=== PATIENT | male | born 1970 | race Caucasian/White ===

== ENCOUNTER 2021-09-13 10:37 | Emergency (ER) | payer OTHER ==
[~2021-09-13] VITALS: Ht 180.3 cm; Wt 108.1 kg
[2021-09-13 10:44] VITALS: BP 140/81
[2021-09-13] MEDS ORDERED: KETOROLAC 60 MG/2 ML VIAL IM ONE (12:00)
--- NOTE | 2021-09-13 12:00 | NUR ---
PT AMBULATED TO BED 04.
--- NOTE | 2021-09-13 12:10 | NUR ---
MICHELLE KEE AT PT BEDSIDE FOR FURTHER EVALUATION.
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
[2021-09-13] MEDS ORDERED: CYCL-711 PO (12:17)
[2021-09-13] MEDS ORDERED: NAPR-54 PO (12:17)
--- NOTE | 2021-09-13 12:28 | NUR ---
Patient discharged with v/s stable. Written and verbal after care instructions given FOR MEDICAL SCREENING EXAM, CONTUSION, AND MUSCLE STRAIN and explained. Patient alert, oriented and verbalized understanding of instructions. Ambulatory with steady gait. All questions addressed prior to discharge. ID band removed. Patient advised to follow up with PMD. Rx of FLEXERIL AND NAPROXEN given. Patient educated on indication of medication including possible reaction and side effects. Opportunity to ask questions provided and answered.
== END 2021-09-13 12:28 | disposition home or self-care (01) ==
LOC: MED 10:37
DX: M54.2 Cervicalgia (principal); M79.601 Pain in right arm; R22.0 Localized swelling, mass and lump, head; R20.0 Anesthesia of skin; R20.2 Paresthesia of skin; Z79.899 Other long term (current) drug therapy; Z79.1 Long term (current) use of non-steroidal anti-inflammatories (NSAID); Y04.0XXA Assault by unarmed brawl or fight, initial encounter; Y92.89 Other specified places as the place of occurrence of the external cause; Y93.89 Activity, other specified; Y99.8 Other external cause status
CPT/HCPCS: 96372; 99283; J1885

== ENCOUNTER 2023-08-17 18:28 | Emergency (ER) | payer OTHER ==
[~2023-08-17 18:28] MED LIST: CYCL-711 PO; NAPR-337 PO
== END 2023-08-17 21:28 | disposition left against medical advice (07) ==
LOC: MED 18:28
DX: M54.50 Low back pain, unspecified (principal); Z53.21 Procedure and treatment not carried out due to patient leaving prior to being seen by health care provider